=== PATIENT | female | born 1985 | race Caucasian/White ===

== ENCOUNTER 2023-05-06 15:37 | Outpatient (CLI) | payer MEDICAID, SELFPAY ==
[2023-05-06 15:51] LABS: HCG Quant, Pregnancy 2482 mIU/mL (1-3)
== END 2023-05-06 15:38 | disposition home or self-care (01) ==
LOC: LBO 15:40
PROVIDERS: Visit Provider Advanced Practice Midwife
DX: N92.5 Other specified irregular menstruation (principal); Z32.01 Encounter for pregnancy test, result positive
CPT/HCPCS: 36415; 86850; 86900; 86901; 84702

== ENCOUNTER 2023-05-15 16:24 | Outpatient (CLI) | payer MEDICAID, SELFPAY ==
[2023-05-15 16:12] LABS: HCG Quant, Pregnancy 21016 mIU/mL (1-3)
== END 2023-05-15 16:25 | disposition home or self-care (01) ==
LOC: LBO 16:28
PROVIDERS: Visit Provider Advanced Practice Midwife
DX: O20.0 Threatened abortion (principal); Z3A.10 10 weeks gestation of pregnancy
CPT/HCPCS: 36415; 84702

== ENCOUNTER 2023-05-16 00:43 | Outpatient (CLI) | payer MEDICAID, SELFPAY ==
--- OUTSIDE RECORDS SUMMARY | 2023-05-16 00:45 | XMS_ITS | Continuity of Care Document ---
Author Name Unknown Organization [facility] Address [address] [place] [address] Encounter [facility] Date(s): 05/09/23 - 05/09/23 [facility] [address] [place] [address] Encounter Diagnosis Cough(Discharge Diagnosis) - 05/09/23 (Discharge Diagnosis) - 05/09/23 Discharge Disposition: Home or Self Care Attending Physician: Lukas Alvarado MD Admitting Physician: Lukas Alvarado MD Allergies, Adverse Reactions, Alerts No Known Medication Allergies Assessment and Plan Extracted from: Title:Clinical Document Author:Stacie Sandra te:05/09/23 Diagnosis: 1. Cough Comment: Diagnosis: 2. Comment: Diagnosis: Cough Comment: Functional Status 05/09/23 Other exposure to Infectious Disease COV ID-19 Symptoms Present Immunizations Given and Recorded Vaccine Date Status Refusal Reason SARS-CoV-2 (COVID-19) mRNA-1273 vaccine 12/29/20 R ecorded SARS-CoV-2 (COVID-19) mRNA-1273 vaccine 11/28/20 R ecorded Vital Signs Most recent to oldest [Reference Range]: 1 Temperature Temporal Artery [36-38 Deg C ] 36.4 Deg C (05/09/23 6:51 AM) Peripheral Pulse Rate [60-100 bpm] 102 b pm *HI* (05/09/23 6:51 AM) Respiratory Rate [12-24 br/min] 18 br/mi n (05/09/23 6:51 AM) Blood Pressure [90-140/60-90 mmHg] 141/9 8mmHg *HI* (05/09/23 6:51 AM) Weight Dosing 81.65 kg (05/09/23 6:57 AM) Weight Estimated 81.65 kg (05/09/23 6:51 AM) Height/Length Dosing 154.940 cm (05/09/23 6:57 AM) Height/Length Estimated 154.940 cm (05/09/23 6:51 AM) Social History Social History Type Response Tobacco Never tobacco user T obacco Use:. Sex Female Hospital Discharge Instructions Patient Education 05/09/2023 06:51:52 Cough, Adult Cough, Adult Coughing is a reflex that clears your throat and your airways (respiratory system). Coughing helps to heal and protect your lungs. It is normal to cough occasionally, but a cough that happens with other symptoms or lasts a long time may be a sign of a condition that needs treatment. An acute cough may only last 2???3 weeks, while a chronic cough may last 8 or more weeks. Coughing is commonly caused by: ??? Infection of the respiratory systemby viruses or bacteria. ??? Breathing in substances that irritate your lungs. ??? Allergies. ??? Asthma. ??? Mucus that runs down the back of your throat (postnasal drip). ??? Smoking. ??? Acid backing up from the stomach into the esophagus (gastroesophageal reflux). ??? Certain medicines. ??? Chronic lung problems. ??? Other medical conditions such as heart failure or a blood clot in the lung (pulmonary embolism). Follow these instructions at home: Medicines ??? Take qqce-dut-csiepyc and prescription medicines only as told by your health care provider. ??? Talk with your health care provider before you take a cough suppressant medicine. Lifestyle ??? Avoid cigarette smoke. Do not use any products that contain nicotine or tobacco, such as cigarettes, e-cigarettes, and chewing tobacco. If you need help quitting, ask your health care provider. ??? Drink enough fluid to keep your urine pale yellow. ??? Avoid caffeine. ??? Do not drink alcohol if your health care provider tells you not to drink. General instructions ??? Pay close attention to changes in your cough. Tell your health care provider about them. ??? Always cover your mouth when you cough. ??? Avoid things that make you cough, such as perfume, candles, cleaning products, or campfire or tobacco smoke. ??? If the air is dry, use a cool mist vaporizer or humidifier in your bedroom or your home to helploosen secretions. ??? If your cough is worse at night, try to sleep in a semi-upright position. ??? Rest as needed. ??? Keep all follow-up visits as told by your health care provider. This is important. Contact a health care provider if you: ??? Have new symptoms. ??? Cough up pus. ??? Have a cough that does not get better after 2???3 weeks or gets worse. ??? Cannot control your cough with cough suppressant medicines and you are losing sleep. ??? Have pain that gets worse or pain that is not helped with medicine. ??? Have a fever. ??? Have unexplained weight loss. ??? Have night sweats. Get help right away if: ??? You cough up blood. ??? You have difficulty breathing. ??? Your heartbeat is very fast. These symptoms may represent a serious problem that is an emergency. Do not wait to see if the symptoms will go away. Get medical help right away. Call your local emergency services (911 in the [place] Do not drive yourself to the hospital. Summary ??? Coughing is a reflex that clears your throat and your airways. It is normal to cough occasionally, but a cough that happens with other symptoms or lasts a long time may be a sign of a condition that needs treatment. ??? Take gzcm-phz-bpretkt and prescription medicines only as told by your health care provider. ??? Always cover your mouth when you cough. ??? Contact a health care provider if you have new symptoms or a cough that does not get better after 2???3 weeks or gets worse. This information is not intended to replace advice given to you by your health care provider. Make sure you discuss any questions you have with your health care provider. Document Revised: 11/29/2019 Document Reviewed: 11/29/2019 [employer] Patient Education ?? 2021 [employer] Follow Up Care 05/09/2023 06:51:45 With:Follow up with primary care provider Address: When:2 to 4 days Physician Emergency department Note * Vonda Mcarthur MD: PERFORM Event Display: ED Note Physician Authored Date: [id number] ELMER RAY :1985 Age:37 years Sex:Female Visit Date:05/09/2023 Basic Information Time Seen: Vonda Mcarthur MD / 05/09/2023 07:11 Chief Complaint pt states that it is day 4 of coughing, keeping her up at night. ??pt is 7 weeks , contacted her OB yesterday tried meds but nothing is working. pt states that ribs/chest are hurting from coughing so much History Of Present Illness: 37-year-old lady??with history of seasonal allergies, ??who??also tells me she has had chronic??symptoms of??throat itching, throat mucus and cough since she had COVID in 2020,??currently 7 weeks ,??who presents to the emergency department complaining of worsening cough??at night in the past??3 days.??The patient says she has also had bouts of coughing??during the day at work??and she had1 bout yesterday which made her??go home early.?? She says her throat feels??itchy and dry, that she often has to clear it,??and that??it makes her cough. Most of the time it is a dry cough but sometimes there is mucus.?? She feels that??her symptoms are worse when she is laying down and she is trying to sleep??by sitting up slightly.?? She has tried??Zyrtec and??NeilMed rinsing??agents??without improvement in her symptoms.?? She has had no fevers, chills. ??She has had no??midepigastric pain, nausea, vomiting.?? No chest pain or shortness of breath.?? She feels that her chest muscles are sore??because of all the coughing. She took a home covid test which was negative. She does not smoke and never has. Physical Exam Vitals & Measurements T:??36.4?C ??(Temporal Artery)?? HR:??102??(Peripheral)?? RR:??18?? BP:??141/98?? SpO2:??100%?? HT:??154.940??cm?? WT:??81.65??kg??(Estimated)?? Pain Score:??5?? O2 Therapy:??Room air?? General: A&Ox3, Calm, no apparent distress, well developed, pleasant and cooperative ?? HEENT: Head ATNC. Eyes: DOTTIE. Extraocular Mobility: intact and symmetrical. Conjunctiva: non-injected, anicteric, no discharge. Oral Cavity: moist. Neck: no masses, no crepitus. Lymph Nodes: no cervical lymphadenopathy? Respiratory: CTA bilaterally, no wheezing, no rales/crackles? CV: RRR, normal S1, normal S2, no murmurs, rubs or gallops ?? Abdomen : soft, non-tender, non-distended, no rebound or guarding, no hepatosplenomegaly ?? Extremities: no le swelling, warm and well-perfused, no cyanosis, capillary refill <2 seconds? Skin: no rash, no lesions, no bruising? Neuro: normal tone, normal strength in all 4 extremities, sensation intact?? Medical Decision Makin-year-old lady??with history of seasonal allergies, ??who??also tells me she has had chronic??symptoms of??throat itching, throat mucus and cough since she had COVID in 2020,??currently 7 weeks ,??who presents to the emergency department complaining of worsening cough??at night in the past??3 days.? Pt is well and non toxic appearing with reassuring VS and a reassuring lung exam Her presentation is s/f post nasal drip vs reflux causing throat irritation and cough. I do not seeanything indicating infectious such as pna, bronchitis, or cardiac such as ACS or??PE. ?? This pt required extensive counseling. We had an extended conversation for at least 15 minutes as pt expressed severe psychological distress 2/2 symptoms. I did not observe any coughing during that time so I could not assess her cough butaccording to her description the two etiologies above are the most likely. I reviewed home remedies.??I recommended small meals and avoiding eating just before going to sleep. I recommended a trial of Pepto Bismol to see if this would help with possible reflux symptoms. ??We also reviewed air quality at home and at work, as the patient also noted herself that she had not been coughing at all while with us in the ED. Due to pt's continued psychological distress I offered a strep test, a mono test, and a CXR (having explained possible negative effect on the fetus) and the patient ultimately declined. I recommended that she monitors her symptoms and f/u with pcp if no improvement in a?? few days. We reviewed return precautions and I answered all her questions. Procedure No Qualifying Data Assessment/Plan 1.??Cough??R05.9 Ordered: Discharge Patient, 05/09/23 7:51:00 EDT, Constant Indicator ?? 2.?Z34.90 Ordered: Discharge Patient, 05/09/23 7:51:00 EDT, Constant Indicator ?? Patient Education Cough, Adult Follow Up With When Contact Information Follow up with primary care provider Within 2 to 4 days Additional Instructions: Problem List/Past Medical History Ongoing No qualifying data Historical No qualifying data Allergies No Known Medication Allergies Social History Electronic Cigarette/Vaping Electronic Cigarette Use: Never. Tobacco Never tobacco user Tobacco Use:. Electronically Signed on 05/09/23 09:34 AM Vonda Mcarthur MD Emergency department Discharge instructions * Vonda Mcarthur MD: PERFORM Event Display: ED Discharge Information Authored Date: [id number] ELMER RAY :1985 Age:37 years Sex:Female Visit Date:05/09/2023 Discharge Instructions We would like to thank you for allowing us to assist you with your healthcare needs. The following includes patient education materials and information regarding your injury/illness. Diagnosis from Today's Visit Cough Discharge Vitals Temperature??(Temporal Artery) 97.5 ??F (36.4 ??C) Heart Rate??(Peripheral) 102 Respiratory Rate?? 18 Blood Pressure?? 141/98?? Height?? 61.00 in (154.940 cm) Weight??(Estimated) 180.04 lb (81.65 kg) Allergies No Known Medication Allergies What to Do Next Instructions from Your Care Team As we discussed,??the 2 most likely causes of your cough are??postnasal drip??and reflux.?? For postnasal drip,??please??continue your allergy medications and use NeilMed??rinsing solutions??and rinse??your nose??twice a day.?? For reflux, please??take small meals frequently and avoid heavy meals??b efore going to bed.?? You can take Pepto-Bismol??before and after eating??to see if this will help your symptoms.?? To help you sleep,??try??chamomile??or other herbal tea??about half an hour before going to bed.?? If your symptoms do not improve in the next week, please follow-up with your primarycare provider or your hospital manager??for reevaluation. You Need to Schedule the Following Appointments Follow Up with??Follow up with primary care provider When:??Within 2 to 4 days You were treated today on an emergency basis; it may be nelson to contact your primary care provider to notify them of your visit today. You may have been referred to your regular doctor or a specialist, please follow up as instructed. If your condition worsens or you can't get in to see the doctor, contact the Emergency Department. Education Materials Cough, Adult Coughing is a reflex that clears your throat and your airways (respiratory system). Coughing helps to heal and protect your lungs. It is normal to cough occasionally, but a cough that happens with other symptoms or lasts a long time may be a sign of a condition that needs treatment. An acute cough may only last 2???3 weeks, while a chronic cough may last 8 or more weeks. Coughing is commonly caused by: ? Infection of the respiratory systemby viruses or bacteria. ? Breathing in substances that irritate your lungs. ? Allergies. ? Asthma. ? Mucus that runs down the back of your throat (postnasal drip). ? Smoking. ? Acid backing up from the stomach into the esophagus (gastroesophageal reflux). ? Certain medicines. ? Chronic lung problems. ? Other medical conditions such as heart failure or a blood clot in the lung (pulmonary embolism). Follow these instructions at home: Medicines ? Take lwes-aou-qfnktkk and prescription medicines only as told by your health care provider. ? Talk with your health care provider before you take a cough suppressant medicine. Lifestyle ? Avoid cigarette smoke. Do not use any products that contain nicotine or tobacco, such as cigarettes, e-cigarettes, and chewing tobacco. If you need help quitting, ask your health care provider. ? Drink enough fluid to keep your urine pale yellow. ? Avoid caffeine. ? Do not drink alcohol if your health care provider tells you not to drink. General instructions ? Pay close attention to changes in your cough. Tell your health care provider about them. ? Always cover your mouth when you cough. ? Avoid things that make you cough, such as perfume, candles, cleaning products, or campfire or tobacco smoke. ? If the air is dry, use a cool mist vaporizer or humidifier in your bedroom or your home to help loosen secretions. ? If your cough is worse at night, try to sleep in a semi-upright position. ? Rest as needed. ? Keep all follow-up visits as told by your health care provider. This is important. Contact a health care provider if you: ? Have new symptoms. ? Cough up pus. ? Have a cough that does not get better after 2???3 weeks or gets worse. ? Cannot control your cough with cough suppressant medicines and you are losing sleep. ? Have pain that gets worse or pain that is not helped with medicine. ? Have a fever. ? Have unexplained weight loss. ? Have night sweats. Get help right away if: ? You cough up blood. ? You have difficulty breathing. ? Your heartbeat is very fast. These symptoms may represent a serious problem that is an emergency. Do not wait to see if the symptoms will go away. Get medical help right away. Call your local emergency services (911 in the [place] Do not drive yourself to the hospital. Summary ? Coughing is a reflex that clears your throat and your airways. It is normal to cough occasionally, but a cough that happens with other symptoms or lasts a long time may be a sign of a condition that needs treatment. ? Take mjgl-hzt-isidqcn and prescription medicines only as told by your health care provider. ? Always cover your mouth when you cough. ? Contact a health care provider if you have new symptoms or a cough that does not get better after 2???3 weeks or gets worse. This information is not intended to replace advice given to you by your health care provider. Make sure you discuss any questions you have with your health care provider. Document Revised: 11/29/2019 Document Reviewed: 11/29/2019 [employer] Patient Education ?? 2021 [employer] Patient/Grocery Checker Signature Patient Name:ELMER RAY García I have received this information and my questions have been answered. Patient/Grocery Checker Name: Patient/Grocery Checker Signature: Relationship to Patient: Witness Name/Signature: Date: Electronically Signed on: 05/09/2023 07:54 EDTSigned by:B Discharge summary * Stacie Sandra: PERFORM Event Display: Discharge Note Authored Date: * Stacie Sandra: PERFORM Event Display: Discharge Note Authored Date: Diagnosis: 1. Cough Comment: Diagnosis: 2. Comment: Diagnosis: Cough Comment: Electronically Signed on 05/09/23 08:06 AM Stacie Sandra Patient Care team information Care Team Personnel Name: Vonda Mcarthur MD Position: Physician Member Role: ED Physician Address: Address: [address] [place] [id number] [place] Name: Jaquelin Estrella Position: Nurse Member Role: ED Nurse Care Team Related Persons Name: ASHLEY
--- NOTE | 2023-05-16 08:00 | DI.US_ITS ---
Exam(s) US OB 1ST TRIMESTER EXAM: US OB 1ST TRIMESTER CLINICAL HISTORY: confirm viability, THREATENED , O20.0. COMPARISON: No exams were available for comparison TECHNIQUE: Transabdominal Transvaginal first trimester obstetrical ultrasound performed. FINDINGS: Sonographic images demonstrate a single intrauterine gestation. A yolk sac and pole are seen. Sonographically assessed gestational age based upon gestational sac size of 1.7 cm is: 6 weeks Estimated date of delivery based on this ultrasound is: 01/09/2024 heart rate motion is Dopplered at: 116 bpm. No free fluid identified. Both ovaries appear sonographically normal. There is a corpus luteal cyst on the left ovary. Pelvic Measurments Uterus: 9.5 x 4.7 x 5.1 cm Rt Ovary: 3.1 x 2.0 x 2.3 cm Lt Ovary: 3.5 x 2.1 x 2.8 cm IMPRESSION: There is a single intrauterine gestation. heart rate is 116 beats per minute. Yolk sac was id entified as was a pole. Estimated gestational age is 6 weeks based on gestational sac size. A repeat examination in 1-2 weeks should be considered for better characterization of the pole a nd gestational age. DATA REPOSITORY:
== END 2023-05-16 01:03 ==
PROVIDERS: Visit Provider Advanced Practice Midwife
DX: O20.0 Threatened abortion (principal)
CPT/HCPCS: 76801

== ENCOUNTER 2023-05-23 00:14 | Outpatient (CLI) | payer MEDICAID, SELFPAY ==
--- NOTE | 2023-05-23 07:15 | DI.US_ITS ---
Exam(s) US OB 1ST TRIMESTER EXAM: US OB 1ST TRIMESTER CLINICAL HISTORY: threatened miscarriage,o20.0. COMPARISON: US US OB 1ST TRIMESTER from 05/16/2023 TECHNIQUE: Transvaginal first trimester obstetrical ultrasound performed. FINDINGS: Sonographic images demonstrate a single intrauterine gestation. A yolk sac and pole are seen. Sonographically assessed gestational age based upon crown-rump length of 0.8 cm is: 6 +5 weeks Estimated date of delivery based on this ultrasound is: 12 January 2023 Estimated date of delivery based upon prior exam: 09 January 2023 heart rate motion is Dopplered at: 145 bpm. No free fluid identified. Both ovaries appear sonographically normal. Pelvic Measurments Uterus: 8.5 x 5.3 x 5.5 cm Rt Ovary: 1.8 x 3 x 2.7 cm Lt Ovary: 2.9 x 2.3 x 3 cm IMPRESSION: Single live intrauterine gestation measuring 6 weeks 5 days.. DATA REPOSITORY:
== END 2023-05-23 00:34 ==
LOC: DI 00:14
PROVIDERS: Visit Provider Advanced Practice Midwife
DX: O20.0 Threatened abortion (principal)
CPT/HCPCS: 76801

== ENCOUNTER 2023-06-30 02:51 | Outpatient (CLI) | payer MEDICAID, SELFPAY ==
[2023-06-30 11:02] LABS: Panorama Kit Sent via Fed Ex
[2023-06-30 11:16] LABS: Abs Immature Grans 0.06 10^3/uL (0.0-0.06); Absolute Basophil Count 0.05 10^3/uL (0.0-0.2); Absolute Eosinophil Count 0.02 10^3/uL (0.0-0.7); Absolute Lymphocyte Count 1.97 10^3/uL (1.2-3.4); Absolute Monocyte Count 0.49 10^3/uL (0.1-0.8); Absolute Neutrophil Count 6.92 10^3/uL (1.2-6.7); Basophils % 0.5; Eosinophils % 0.2; HCT 35.4 % (36.0-46.0); HGB 11.1 g/dL (11.2-15.7); Immature Grans % 0.6; Lymphocytes % 20.7; MCH 23.8 pg (27.0-33.0); MCHC 31.4 % (32.0-36.0); MCV 76 fL (80-95); MPV 9.9 fL (8.0-11.0); Monocytes % 5.2; Neutrophils % 72.8; Platelet Count 329 10^3/uL (130-400); RBC 4.66 10^6/uL (3.93-5.22); WBC 9.51 10^3/uL (4.4-10.8)
[2023-07-01 09:35] LABS: Hepatitis B Surface Ag Negative (Negative)
[2023-07-01 10:24] LABS: Hepatitis C Ab w Rflx HCV PCR Negative (Negative)
[2023-07-01 10:27] LABS: HIV-1/2 Ag & Ab Screen Negative (Negative)
[2023-07-01 10:37] LABS: Rubella IgG Ab (UVM) Positive (See Note); Varicella IgG Antibody Positive (See Note)
[2023-07-02 14:51] LABS: Syphilis IgG w/Reflex Nonreactive (Nonreactive)
== END 2023-06-30 02:52 | disposition home or self-care (01) ==
LOC: LBO 02:51
PROVIDERS: Advanced Practice Midwife; Visit Provider Advanced Practice Midwife
DX: Z34.91 Encounter for supervision of normal pregnancy, unspecified, first trimester (principal); Z3A.12 12 weeks gestation of pregnancy
CPT/HCPCS: 36415; 86787; 86803; 86850; 86900; 86901; 87340; 87389; 85025; 86762; 86780

== ENCOUNTER 2023-06-30 12:18 | Outpatient (REF) | payer MEDICAID, SELFPAY ==
[2023-06-30 14:21] LABS: *AMPHETAMINES SCREEN URINE Negative (Negative); *BARBITURATES SCREEN URINE Negative (Negative); *BENZODIAZEPINES SCREEN URINE Negative (Negative); Cannabinoids THC Negative (Negative); Cocaine Screen,Urine Negative (Negative); METHADONE URINE SCREEN Negative (Negative); OPIATES URINE SCREEN Negative (Negative)
[2023-06-30 14:22] LABS: Tricyclic Antidepressants Negative (Negative)
[2023-07-04 12:20] LABS: Buprenorphine Negative ng/mL (Cutoff: 5.0); Norbuprenorphine Negative ng/mL (Cutoff: 2.5)
== END 2023-06-30 12:19 | disposition home or self-care (01) ==
LOC: LBN 12:18
PROVIDERS: Visit Provider Advanced Practice Midwife
DX: Z34.91 Encounter for supervision of normal pregnancy, unspecified, first trimester (principal); Z3A.12 12 weeks gestation of pregnancy
CPT/HCPCS: 80307; 80348; 87086

== ENCOUNTER 2023-07-07 03:50 | Outpatient (CLI) | payer MEDICAID, SELFPAY ==
[2023-07-07 11:26] LABS: Glucose,1 Hr (Glucola) 162 mg/dL (80-140)
== END 2023-07-07 03:51 | disposition home or self-care (01) ==
LOC: LBO 03:50
PROVIDERS: Advanced Practice Midwife; Visit Provider Advanced Practice Midwife
DX: Z34.91 Encounter for supervision of normal pregnancy, unspecified, first trimester (principal); Z3A.13 13 weeks gestation of pregnancy
CPT/HCPCS: 36415; 82950

== ENCOUNTER → 2023-08-28 03:00 | Outpatient (CLI) | payer MEDICAID, SELFPAY ==
--- NOTE | 2023-08-28 09:00 | DI.US_ITS ---
Exam(s) US OB 2-3 TRIMESTER EXAM: US OB 2-3 TRIMESTER CLINICAL HISTORY: anatomy, Z34.90, SURVEY. TECHNIQUE: Transabdominal obstetrical ultrasound was performed. COMPARISON: US US OB 1ST TRIMESTER from 05/23/2023 FINDINGS: There is a single viable intrauterine gestation with cardiac activity identified-161 bpm. Amniotic fluid: There is a normal amount of amniotic fluid. Placental location: The placenta is posterior grade 1,with no evidence of placenta previa.Distance fr om the tip of placenta to the internal cervical os is 4 cm. ANATOMY: A 3 vessel umbilical cord is seen. A four-chamber cardiac view was obtained. Right and left ventricular outflow tracts were imaged. There are no obvious abnormalities of the spinal column evident. There is no obvious abnormal ity of the anterior abdominal wall. stomach and urinary bladder are identified and there is no evidence of hydronephrosis. No abnormalities of the upper lip region are identified. No evidence of choroid plexus cysts i n the brain. Dating parameters place this at approximately 20 weeks and 6 days gestational age. BPD measures 20 weeks and 4 days HC measures 20 weeks and 6 days AC measures 20 weeks and 6 days FL measures 20 weeks and 6 days Estimated weight is 385 gm-0 pounds, 14 ounces Fetus is at the 71st percentile on the Hadlock scale. IMPRESSION:: Single viable intrauterine gestation which is approximately 20 weeks and 6 days gestati onal age, implying an MARICEL of 01/09/2024.. There are no obvious anomalies evident on today's study. The placenta is posterior with no evidence of placenta previa. There is a normal amount of amniotic fluid. DATA REPOSITORY:
== END ==
PROVIDERS: Visit Provider Obstetrics & Gynecology
DX: Z34.92 Encounter for supervision of normal pregnancy, unspecified, second trimester (principal)
CPT/HCPCS: 76805

== ENCOUNTER 2023-08-28 04:59 | Outpatient (CLI) | payer MEDICAID, SELFPAY ==
[2023-08-28 14:03] LABS: Abs Immature Grans 0.08 10^3/uL (0.0-0.06); Absolute Basophil Count 0.03 10^3/uL (0.0-0.2); Absolute Eosinophil Count 0.03 10^3/uL (0.0-0.7); Absolute Neutrophil Count 8.86 10^3/uL (1.2-6.7); Basophils % 0.3; Eosinophils % 0.3; HCT 33.1 % (36.0-46.0); HGB 10.1 g/dL (11.2-15.7); Immature Grans % 0.7; Lymphocytes % 15.9; MCH 23.1 pg (27.0-33.0); MCHC 30.5 % (32.0-36.0); MCV 76 fL (80-95); MPV 9.6 fL (8.0-11.0); Monocytes % 4.4; Neutrophils % 78.4; Platelet Count 277 10^3/uL (130-400); RBC 4.38 10^6/uL (3.93-5.22); RDW 16.4 % (11.7-14.6); RDW-SD 43.6 fL
[2023-08-28 14:49] LABS: ALT 18 U/L (14-59); AST 15 U/L (15-37); Albumin 2.8 g/dL (3.4-5.0); Alkaline Phosphatase 95 U/L (46-116); Anion Gap 9.6 mmol/L (3-11); BUN 8 mg/dL (7-18); Bilirubin, Total 0.5 mg/dL (0.2-1.0); CO2 23.4 mmol/L (21.0-32.0); CREATININE 0.5 mg/dL (0.55-1.02); Calcium 9.2 mg/dL (8.5-10.1); Chloride 99 mmol/L (98-107); Estimated GFR 123.81 (mL/min/1.73m2); Glucose 95 mg/dL (74-106); Potassium 3.8 mmol/L (3.5-5.1); Sodium 132 mmol/L (136-145); Total Protein 7.3 g/dL (6.4-8.2)
[2023-08-28 17:53] LABS: COMMENT (LAB VIEW ONLY) 26.59 mg/dL
[2023-08-28 17:54] LABS: PROTEIN < 6.0 mg/dL
== END 2023-08-28 05:00 | disposition home or self-care (01) ==
LOC: LBO 05:00
PROVIDERS: Visit Provider Obstetrics & Gynecology
DX: O10.919 Unspecified pre-existing hypertension complicating pregnancy, unspecified trimester (principal); Z3A.00 Weeks of gestation of pregnancy not specified
CPT/HCPCS: 36415; 80053; 82565; 84156; 85025

== ENCOUNTER → 2023-11-06 01:13 | Outpatient (CLI) | payer MEDICAID, SELFPAY ==
--- NOTE | 2023-11-06 11:00 | DI.US_ITS ---
Exam(s) US OB CHANCE WEIGHT EXAM: US OB CHANCE WEIGHT CLINICAL HISTORY: size and CHANCE,GESTATIONAL DIABETES,o24.419. TECHNIQUE: Transabdominal obstetrical ultrasound performed. COMPARISON: US US OB 2-3 TRIMESTER from 08/28/2023 FINDINGS:: Number of fetuses: One. position: Vertex. Placental location: Posterior. No evidence of previa. BIOMETRIC DATA: BPD: 78mm = 31+1 weeks HC: 288mm = 31+5 weeks AC: 272mm = 31+2 weeks FL: 59 mm = 30+ 5 weeks EFW: 11/30/2005 Gms = 62% Composite Age: 31+2 weeks MARICEL: 06 January 2024 Heart Rate: 145BPM Amniotic fluid index: 17.7 cm. Amount of fluid is visually within normal limits. IMPRESSION: size and weight are within the expected range. DATA REPOSITORY:
== END ==
PROVIDERS: Visit Provider Obstetrics & Gynecology
DX: O24.414 Gestational diabetes mellitus in pregnancy, insulin controlled (principal); Z3A.31 31 weeks gestation of pregnancy
CPT/HCPCS: 76816

== ENCOUNTER → 2023-12-05 02:26 | Outpatient (CLI) | payer MEDICAID, SELFPAY ==
--- NOTE | 2023-12-05 06:45 | DI.US_ITS ---
Exam(s) US OB CHANCE WEIGHT EXAM: US OB CHANCE WEIGHT CLINICAL HISTORY: follow growth and CHANCE,)24.419,hypertension,gest diabetes. TECHNIQUE: Transabdominal obstetrical ultrasound performed. COMPARISON: US US OB 1ST TRIMESTER from 05/23/2023 US US OB 2-3 TRIMESTER from 08/28/2023 US US OB CHANCE WEIGHT from 11/06/2023 FINDINGS: Number of fetuses: 1 position: CEPHALIC Placental location: There is a grade 1 posterior and fundal placenta. No evidence of previa. BIOMETRIC DATA: BPD: 8.49cm, 34weeks 1day HC: 30.93cm, 34weeks 4days AC: 30.9cm, 34weeks 6days FL: 6.64cm, 34weeks 1day EFW: 2,461.05g, 5lb 7.34oz, 44.9% Composite Age: 34weeks 3days MARICEL: 01/13/2024 Heart Rate: 144bpm Amniotic fluid index: 14.59cm. Visually, amount of fluid is within normal limits. IMPRESSION: 1. Single live intrauterine gestation as above. 2. Estimated weight is 2461gms. This is the 45th percentile. 3. Amniotic fluid index is 14.6 cm. Visually within normal limits. DATA REPOSITORY:
== END ==
PROVIDERS: Visit Provider Obstetrics & Gynecology Gynecology
DX: O24.419 Gestational diabetes mellitus in pregnancy, unspecified control; Z3A.34 34 weeks gestation of pregnancy
CPT/HCPCS: 76816

== ENCOUNTER 2023-12-05 09:19 | Outpatient (CLI) | payer MEDICAID, SELFPAY ==
[2023-12-05 09:49] LABS: HCT 35.8 % (36.0-46.0); HGB 11.2 g/dL (11.2-15.7); MCH 24.7 pg (27.0-33.0); MCHC 31.3 % (32.0-36.0); MCV 79 fL (80-95); MPV 9.8 fL (8.0-11.0); Platelet Count 224 10^3/uL (130-400); RBC 4.54 10^6/uL (3.93-5.22); RDW 16.5 % (11.7-14.6); RDW-SD 46.8 fL; WBC 12.01 10^3/uL (4.4-10.8)
[2023-12-05 09:55] VITALS: BP 126/77; PULSE 96
[2023-12-05 10:08] LABS: ALT 17 U/L (14-59); AST 15 U/L (15-37); Albumin 2.4 g/dL (3.4-5.0); Alkaline Phosphatase 156 U/L (46-116); Anion Gap 9.2 mmol/L (3-11); BUN 7 mg/dL (7-18); Bilirubin, Total 0.5 mg/dL (0.2-1.0); CO2 23.8 mmol/L (21.0-32.0); CREATININE 0.5 mg/dL (0.55-1.02); Calcium 8.7 mg/dL (8.5-10.1); Chloride 104 mmol/L (98-107); Estimated GFR 123.81 (mL/min/1.73m2); Glucose 100 mg/dL (74-106); Potassium 4.3 mmol/L (3.5-5.1); Sodium 137 mmol/L (136-145); Total Protein 6.5 g/dL (6.4-8.2); Uric Acid 3.1 mg/dL (2.6-6.0)
--- NOTE | 2023-12-05 10:08 | W.OBNST ---
Date of service: 12/05/23 Time of Service: 10:08 NST Evaluation Reason for NST Reasons for Nonstress Test: CHRONIC HYPERTENSION Gestational Age Gestational Age in Weeks and Days: 34 Weeks and 4Days Test and Monitor Explained Test/Monitor Explained: Test Explained, Monitor Explained and Patient Verbalized Understanding Vital Signs Blood Pressure: 126/77 Pulse: 96 Urine Results Urine Protein: Negative Urine Ketones: Negative Urine Glucose: Negative Urine Blood: Negative NST Information Date on Monitor: 12/05/23 Time on Monitor: 09:25 Date off Monitor: 12/05/23 Time off Monitor: 09:55 Total Time on Monitor: 30 NST Interventions: None NST Evaluation Patient States Movement: Present FHR Baseline: 135 Variability: Moderate 6-25 bpm Accelerations: 15x15 Decelerations: None NST Results: Reactive Note Ultrasound Done: N/A. NST Note Note: Pt was evaluated on BC after BP 130/90 during [facility] visit. Nf CBC, urine P/C ratio to low to measure. CMP results pending. No c/o headache or abdominal pain. Pt given reassurance and told to return to [facility] on 12/08/23 for repeat BP check. NST Reviewed and Verified by: Marva Alanis
[2023-12-05 10:13] VITALS: BP 126/77; PULSE 96
[2023-12-05 10:35] LABS: COMMENT (LAB VIEW ONLY) 76.49 mg/dL
[2023-12-05 10:40] LABS: PROTEIN 12.2 mg/dL; Prot/Crea Ur Ratio 0.15
== END 2023-12-05 10:00 | disposition home or self-care (01) ==
LOC: BCD 09:22 → OBS 09:28
PROVIDERS: Visit Provider Obstetrics & Gynecology Gynecology
DX: O10.13 Pre-existing hypertensive heart disease complicating the puerperium (principal); Z3A.34 34 weeks gestation of pregnancy
CPT/HCPCS: 36415; 80053; 85027; 59025; 82565; 84156; 84550

== ENCOUNTER 2023-12-08 14:27 | Outpatient (CLI) | payer MEDICAID, SELFPAY ==
[2023-12-08 14:32] VITALS: TEMP 36.8
--- NOTE | 2023-12-09 10:08 | W.OBNST ---
Date of service: 12/09/23 Time of Service: 10:08 NST Evaluation Reason for NST Reasons for Nonstress Test: CHRONIC HYPERTENSION Gestational Age Gestational Age in Weeks and Days: 35 Weeks and 0Days Test and Monitor Explained Test/Monitor Explained: Test Explained, Monitor Explained and Patient Verbalized Understanding Vital Signs Temperature: 98.2 F Urine Results Urine Protein: Negative NST Information Date on Monitor: 12/08/23 Time on Monitor: 14:15 Date off Monitor: 12/08/23 Time off Monitor: 15:50 Total Time on Monitor: 95 NST Interventions: PO Hydration, Reposition Patient, Notify Provider and Other NST Evaluation Patient States Movement: Present FHR Baseline: 160 Variability: Moderate 6-25 bpm Accelerations: 10x10 and Prolonged Decelerations: None NST Results: Non-Reactive Note Ultrasound Done: Biophysical Profile Amniotic Fluid: 2 (15.4) Muscle Tone: 2 Body Movements: 2 Breathing Movements: 2 NST Results: Non-Reactive Total Biophysical Profile Score: 8 Coding for Biophysical Profile w/NST: Completed Exam. NST Note Note: Pt presented to initiate NSTs for chronic HTN and insulin requiring GDM. Pt's NST not reaching reactive status. BPP performed. */10. CHANCE 15.4. Gross and fine movements noted. breathing present. Pt will return to repeat NST later this week. GBS RV Cx next week. Pt reports excellent glycemic control. DBP in office today 90. Labetalol 100mg BID initiated. rC/S date scheduled: 01/07/24. NST Reviewed and Verified by: Marva Alanis
[2023-12-09 10:13] VITALS: TEMP 36.8
== END 2023-12-08 16:20 | disposition home or self-care (01) ==
LOC: BCD 14:27 → OBS 14:28
PROVIDERS: Visit Provider Obstetrics & Gynecology Gynecology
DX: I10 Essential (primary) hypertension (principal)
CPT/HCPCS: 59025

== ENCOUNTER 2023-12-11 11:50 | Outpatient (CLI) | payer MEDICAID, SELFPAY ==
[2023-12-11 14:12] VITALS: BP 126/85; PULSE 96; TEMP 37.2
[2023-12-11 14:24] VITALS: BP 126/85; PULSE 96
--- NOTE | 2023-12-11 17:28 | W.OBNST ---
Date of service: 12/11/23 Time of Service: 17:28 NST Evaluation Reason for NST Reasons for Nonstress Test: GDM-INSULIN and GESTATIONAL HYPERTENSION Gestational Age Gestational Age in Weeks and Days: 35 Weeks and 3Days Test and Monitor Explained Test/Monitor Explained: Test Explained Vital Signs Blood Pressure: 126/85 Pulse: 96 Temperature: 99.0 F NST Information Date on Monitor: 12/11/23 Time on Monitor: 14:04 Date off Monitor: 12/11/23 Time off Monitor: 14:40 Total Time on Monitor: 36 NST Interventions: None NST Evaluation Patient States Movement: Present FHR Baseline: 150 Variability: Moderate 6-25 bpm Accelerations: 15x15 Decelerations: None NST Results: Reactive Note Ultrasound Done: N/A. NST Note Note: reactive NST. BP stable. Glycemic control good. Pt will f/u for twice weekly NSTs and have GBS RV Cx at the time of the next visit. NST Reviewed and Verified by: Marva Alanis
[2023-12-11 17:30] VITALS: BP 126/85; PULSE 96; TEMP 37.2
== END 2023-12-11 14:46 ==
LOC: BCD 11:51 → OBS 14:10
PROVIDERS: Visit Provider Obstetrics & Gynecology Gynecology
DX: O10.013 Pre-existing essential hypertension complicating pregnancy, third trimester (principal); Z3A.35 35 weeks gestation of pregnancy
CPT/HCPCS: 59025

== ENCOUNTER 2023-12-12 10:21 | Outpatient (CLI) | payer MEDICAID, SELFPAY ==
[2023-12-12 11:29] VITALS: BP 112/63; PULSE 88; TEMP 36.8
--- NOTE | 2023-12-12 17:06 | W.OBNST ---
Date of service: 12/12/23 Time of Service: 14:00 NST Evaluation Reason for NST Reasons for Nonstress Test: GESTATIONAL HYPERTENSION Gestational Age Gestational Age in Weeks and Days: 35 Weeks and 4Days Test and Monitor Explained Test/Monitor Explained: Test Explained, Monitor Explained and Patient Verbalized Understanding Vital Signs Blood Pressure: 112/63 Pulse: 88 Temperature: 98.2 F Urine Results Urine Protein: Negative Urine Ketones: Negative Urine Glucose: Negative Urine Blood: Negative NST Information Date on Monitor: 12/12/23 Time on Monitor: 11:20 Date off Monitor: 12/12/23 Time off Monitor: 12:30 Total Time on Monitor: 70 NST Interventions: PO Hydration and Meal Given NST Evaluation Patient States Movement: Present FHR Baseline: 140 Variability: Moderate 6-25 bpm Accelerations: 15x15 Decelerations: None NST Results: Reactive Note Ultrasound Done: N/A. NST Note Note: Pt is feeling better after eating. She was not feeling well at work and someone checked her BP and said it was elevated. Then she checked a urine protein dip and said that was elevated too. It was tr-1+ on dip here. Her BPs were totally normal here. She just started Labetalol last night because she hadn't been able to pick it up prior to that. She says her finger sticks have been normal. Her fasting was 70 this am and she didn't eat breakfast until after she was at work. She doesn't always eat breakfast as she's not always hungry. I emphasized the importance of eating breakfast and not skipping meals as a gestational diabetic. NST Reviewed and Verified by: Ally Carter
[2023-12-12 17:09] VITALS: BP 112/63; PULSE 88; TEMP 36.8
== END 2023-12-12 14:00 | disposition home or self-care (01) ==
LOC: BCD 10:22 → OBS 10:47
PROVIDERS: Visit Provider Obstetrics & Gynecology
DX: O13.3 Gestational [pregnancy-induced] hypertension without significant proteinuria, third trimester (principal); Z3A.35 35 weeks gestation of pregnancy
CPT/HCPCS: 59025

== ENCOUNTER 2023-12-16 12:02 | Outpatient (CLI) | payer MEDICAID, SELFPAY ==
[2023-12-16 14:14] VITALS: BP 125/90; PULSE 90; TEMP 37
[2023-12-16 14:46] VITALS: BP 125/90; PULSE 90
--- NOTE | 2023-12-31 13:02 | W.OBNST ---
Date of service: 12/16/23 Time of Service: 14:00 NST Evaluation Reason for NST Reasons for Nonstress Test: GDM-INSULIN, GESTATIONAL HYPERTENSION and ADVANCED MATERNAL AGE Gestational Age Gestational Age in Weeks and Days: 37 Weeks and 2Days Test and Monitor Explained Test/Monitor Explained: Test Explained Vital Signs Blood Pressure: 125/90 Pulse: 90 Temperature: 98.6 F NST Information Date on Monitor: 12/16/23 Time on Monitor: 14:15 NST Interventions: None NST Evaluation Patient States Movement: Present FHR Baseline: 130 Variability: Moderate 6-25 bpm Accelerations: 15x15 Decelerations: None NST Results: Reactive Note Ultrasound Done: N/A. NST Note NST Reviewed and Verified by: Ally Carter
[2023-12-31 13:03] VITALS: BP 125/90; PULSE 90; TEMP 37
== END 2023-12-16 15:30 ==
LOC: BCD 12:02 → OBS 14:11
PROVIDERS: Visit Provider Obstetrics & Gynecology Gynecology
DX: O24.414 Gestational diabetes mellitus in pregnancy, insulin controlled (principal); Z3A.37 37 weeks gestation of pregnancy
CPT/HCPCS: 59025

== ENCOUNTER 2023-12-24 08:46 | Outpatient (CLI) | payer MEDICAID, SELFPAY ==
[2023-12-24 08:51] VITALS: BP 126/88; PULSE 102
--- NOTE | 2023-12-24 15:52 | W.OBNST ---
Date of service: 12/24/23 Time of Service: 09:00 NST Evaluation Reason for NST Reasons for Nonstress Test: GDM-INSULIN Gestational Age Gestational Age in Weeks and Days: 37 Weeks and 2Days Test and Monitor Explained Test/Monitor Explained: Test Explained, Monitor Explained and Patient Verbalized Understanding NST Information Date on Monitor: 12/24/23 Time on Monitor: 08:40 Date off Monitor: 12/24/23 Time off Monitor: 09:00 Total Time on Monitor: 20 NST Interventions: None NST Evaluation Patient States Movement: Present FHR Baseline: 135 Variability: Moderate 6-25 bpm Accelerations: 15x15 Decelerations: None NST Results: Reactive Note Ultrasound Done: N/A. NST Note NST Reviewed and Verified by: Ally Carter
== END 2023-12-24 09:09 | disposition home or self-care (01) ==
LOC: BCD 08:47 → OBS 08:49
PROVIDERS: Visit Provider Obstetrics & Gynecology
DX: O24.414 Gestational diabetes mellitus in pregnancy, insulin controlled (principal); Z3A.37 37 weeks gestation of pregnancy
CPT/HCPCS: 59025

== ENCOUNTER 2023-12-24 09:32 | Outpatient (REF) | payer MEDICAID, SELFPAY ==
[2023-12-24 11:26] LABS: COMMENT (LAB VIEW ONLY) 151.01 mg/dL; PROTEIN 20.7 mg/dL; Prot/Crea Ur Ratio 0.13
== END 2023-12-24 09:33 | disposition home or self-care (01) ==
LOC: LBN 09:32
PROVIDERS: Visit Provider Obstetrics & Gynecology
DX: O13.3 Gestational [pregnancy-induced] hypertension without significant proteinuria, third trimester (principal); Z3A.37 37 weeks gestation of pregnancy
CPT/HCPCS: 82565; 84156

== ENCOUNTER 2024-01-06 03:33 | Outpatient (CLI) | payer MEDICAID, SELFPAY ==
[2024-01-06 10:12] LABS: HCT 37.8 % (36.0-46.0); HGB 11.9 g/dL (11.2-15.7); MCH 24.4 pg (27.0-33.0); MCHC 31.5 % (32.0-36.0); MCV 78 fL (80-95); MPV 10.7 fL (8.0-11.0); Platelet Count 202 10^3/uL (130-400); RBC 4.87 10^6/uL (3.93-5.22); RDW 16.4 % (11.7-14.6); RDW-SD 45.1 fL; WBC 13.31 10^3/uL (4.4-10.8)
[2024-01-06 11:44] LABS: ALT 23 U/L (14-59); AST 18 U/L (15-37); Albumin 2.5 g/dL (3.4-5.0); Alkaline Phosphatase 240 U/L (46-116); BUN 8 mg/dL (7-18); Bilirubin, Total 0.5 mg/dL (0.2-1.0); CREATININE 0.6 mg/dL (0.55-1.02); Calcium 9.1 mg/dL (8.5-10.1); Chloride 104 mmol/L (98-107); Estimated GFR 118.49 (mL/min/1.73m2); Glucose 93 mg/dL (74-106); Potassium 4.1 mmol/L (3.5-5.1); Sodium 138 mmol/L (136-145)
== END 2024-01-06 03:34 | disposition home or self-care (01) ==
LOC: LBO 03:33
PROVIDERS: Obstetrics & Gynecology; Visit Provider Obstetrics & Gynecology Gynecology
DX: Z01.818 Encounter for other preprocedural examination
CPT/HCPCS: 36415; 80053; 85027; 86850; 86900; 86901

== ENCOUNTER 2024-01-07 09:06 | Inpatient (IN) | payer MEDICAID, SELFPAY ==
[2024-01-07] VITALS (48 sets, daily range): BP systolic 80–124; BP diastolic 50–81; PULSE 76–101; RESP 16–26; TEMP 36.3–36.8; O2SAT 92–100; BMI 37.8
[2024-01-07] MEDS: Lactated Ringers 1,000 ML 125 ML IV ×2 (06:10→09:13)
[2024-01-07] MEDS: AZITHROMYCIN 500 MG in Normal Saline 250 ML 250 MG IVPB (06:22)
--- NOTE | 2024-01-07 06:35 | HPE_ITS ---
Date of service: 01/06/24 Time of Service: 06:36 Assessment and Plan Assessment and plan (1) Chronic hypertension affecting : Status: Acute (2) GDM (gestational diabetes mellitus): Status: Acute (3) History of delivery: Status: Chronic (4) Declines vaginal after trial: Status: Acute (5) Request for sterilization: Status: Acute (6) Preop examination: Status: Acute Assessment and plan: Preop counseling: She was informed of the risks of procedure including risk of damage to bowel, bladder, and blood vessels during the time of the delivery. If any of those injuries were to occur she may require a repair at the time of surgery or blood transfusion or possible hysterectomy. I reviewed the risk of infection and the administration of IV Abx prior to the surgery. By virtue of having a bilateral salpingectomy at the time of the LTCS she will be unable to become in the future. She has no desire for future pregnancies, even if her life circumstances were to change. Informed consent was obtained. OB-HPI Labor/Delivery History of Present Illness Reason for Visit: C-Sect Chief Complaint: Scheduled Section , Inidcation for Scheduled C- Section: Previous .. MARICEL Calculator Estimated Delivery Date Method Current WG Current Estimate 01/12/24 Ultrasound #1 39w 2d Other Estimates 12/06/23 LMP (Certain) 44w 4d History of Present Expected Delivery Route/Plan Plans repeat C/S - FOB/boyfriend - Zacarias Sumner (first child) BG Specific Issues/Plan 1. Prior CS: Desires repeat C/S and tubal ligation - Federal consent signed 2. BMI 35 - Early glucola 162, 3 hr declined, 3. AMA: pt opts for cfDNA=low risk female, declines level 2 and MFM @ [facility] - Start low dose ASA @ 12 wks 4. Depression/anxiety, takes celexa 30 mg daily - increase to 40mg 12/24/23 5. GDM - Nutrition consult 08/25 - All fastings elevated -09/09/23. Increased Novolin-N 4 units AM & 4units PM. 11/06/23: Novolin-N; 8units BID. - NSTs begin 2x/week at 34w. deliver by 39wks 01/07/24 6. CHTN: diastolic elevated mildly x3 now - 12/05/23. Nl labs. 12/08/23. Labetalol 100mg BID. - Already on ASA and will need early monitoring and delivery due to GDM - Will need labs with next visit. Assessment: History Updated Narrative: Pt is a 38yo multiparous female with insulin requiring GDM and chronic hypertension who decines [place] and requests elective repeat delivery with tubal sterilization at term. Informed Consent Informed Consent: Section Delivery Review of Systems All systems reviewed & are unremarkable except as noted in HPI and below Constitutional Constitutional: Reports body ache(s), Reports difficulty sleeping and Reports fatigue Cardiovascular Cardiovascular: Reports system reviewed and no additional complaints, except as documented Respiratory Respiratory: Reports system reviewed and no additional complaints, except as documented Gastrointestinal Gastrointestinal: Denies change in bowel habits, Denies change in stool character, Reports heartburn and Denies nausea Genitourinary Genitourinary: Denies abnormal vaginal bleeding, Reports vaginal discharge, Denies vaginal odor and Denies vaginal pruritus Comments: nocturia. Musculoskeletal Musculoskeletal: Reports back pain, Reports myalgias and Reports arthralgias Integumentary/Breasts Skin/Breast: Reports system reviewed and no additional complaints, except as documented Neurologic Neurologic: Reports system reviewed and no additional complaints, except as documented Psychiatric Psychiatric: Reports abnormal sleep pattern and Reports anxiety Endocrine Endocrine: Reports fatigue PFSH All Active Problems (Updated 01/07/24 @ 06:50 by Marva Alanis MD) Preop examination (Acute) Request for sterilization (Acute) Declines vaginal after trial (Acute) Chronic hypertension affecting (Acute) GDM (gestational diabetes mellitus) (Acute) Anxiety and depression (Chronic) Elderly multigravida (Acute) Obesity (BMI 35.0-39.9 without comorbidity) (Acute) History of delivery (Chronic) (Acute) Social History (Updated 12/08/23 @ 14:45 by Marva Alanis MD) Smoking/Tobacco Use Status: Never Smoking risk assessment performed?: Yes Alcohol Intake: never Drug use: Never Substance use type: does not use Household members: significant other, family and other Details: 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 BF Zacarias. Housing: house Number of Children: 1 Do you feel safe at home: Yes Do you feel safe in your relationship?: Yes History History 4 Para 1 Hx # Term Pregnancies 1 Multiple births 0 Hx # Pregnancies 0 Ectopic pregnancies 0 AB induced 0 Hx Number of Living Children 1 AB spontaneous 2 Past Pregnancies Del. Date GA/Weeks # Preg Succ Route Wgt Sex Labor Lgth Anesth esia Location Prov Complic 12/22/07 42 No Yes 7 lb 13 oz Female 10 hrs [facility] in [facility] Delivery Date: 12/22/07 Last Updated by: Flower Pena IOL for postdates, no epidural, C/S @ 4 cm, distress. CHIC.TVs Allergies and Home Medications Allergies Allergy/AdvReac Type Severity Reaction Status Date / Time seasonal Allergy Mild Other (See Uncoded 01/06/24 09:28 Comment) Home Medications Medication Instructions Recorded Confirmed Type aspirin 81 mg tablet,delayed 81 mg PO DAILY #60 tabs 06/30/23 01/07/24 Rx release pediatric multivitamin no.76 2 tab PO DAILY 06/30/23 01/07/24 History (Flintstones Complete chewable tablet) blood sugar diagnostic (FreeStyle #100 ea 07/07/23 01/07/24 Rx Lite Strips) blood-glucose meter (FreeStyle #1 ea 07/07/23 01/07/24 Rx [place] Lite kit) lancets 26 gauge (Advocate Lancet) #100 ea 07/07/23 01/07/24 Rx pen needle, diabetic 29 gauge x #100 ea 08/28/23 01/07/24 Rx 1/2 (BD Ultra-Fine Original Pen Needle) insulin NPH isoph U-100 human 100 8 unit (0.08 mL) subcut BID #15 mL 11/06/23 01/07/24 Rx unit/mL (3 mL) subcutaneous pen (Humulin N NPH U-100 Insulin KwikPen) citalopram 20 mg tablet (Celexa) 40 mg PO DAILY 12/24/23 01/07/24 History labetalol 100 mg tablet 200 mg (2 x 100 mg) PO BID #60 tabs 12/24/23 01/07/24 Rx Exam Physical Exam Vital Signs Reviewed: Yes Narrative: Pt reports fasing and postprandial CBGs have been in range. Constitutional Constitutional: no acute distress Detailed Labor and Delivery Exam Position: Other (VE deferred.) Roach Score: Cervical Points Exam 0 1 2 3 Dilation Closed 1-2cm 3-4 cm 5-6cm Effacement 0-30% 40-50% 60-70% 80% Consistency Firm Medium Soft Station -3 -2 -1,0 +1,+2 Position Posterior Mid Anterior Amniotic Membrane Status: Intact Fetus A Heart Rate Baseline: 150 Est. Weight: 7 lb Neck Exam Neck Exam: Normal Breast Exam Breast Exam: Not Done Respiratory Exam Respiratory Exam: Normal (lungs clear to auscultation. rate regular.) Cardiovascular Exam Cardiovascular Exam: Normal Detail Cardiovascular Exam Cardiovascular: Present RRR Abdominal Exam Abdominal Exam: Normal (gravid. Non-tender) Detailed Abdominal Exam Abdominal: Present soft Rectal Exam Rectal Exam: Not Done Exam Exam: Not Done Extremities Exam Extremities Exam: Normal Back/Spine/Pelvis Exam Back Exam: Not Done Skin Exam Skin Exam: Normal Neurological Exam Neurological Exam: Normal Psychiatric Exam Psychiatric Exam: Normal Results Results Group Beta Strep: Not Done Blood Type: A+ Rubella Status: Immune Varicella Immunity: Immune Risk Assessment Risk for Shoulder Dystocia Historical/Initial OB: POSITIVE FOR: Pre- BMI>30; NEGATIVE FOR: Pelvic Abnormality, Previous Shoulder Dystocia or Previous Macrosomia 36 Weeks: POSITIVE FOR: Current Gestational DM Risk for Pre-Eclampsia Date Initiated/Initials: start @ 12 wks. JK Yes, if one or more: NEGATIVE FOR: Hx Pre-E/Gest HTN, Chronic HTN, Multiple Gestation, Pre-gestational DM, Renal Disease, Systemic Lupus or APA Syndrome Yes, if 2 or more: POSITIVE FOR: Age>= 35 yrs, >10yr btwn pregnancies and BMI>30; NEGATIVE FOR: Nulliparity, ethinicty, Mother/Sister w/ Pre-E or Previous IUGR Risk for Post- Hemorrhage Initial: NEGATIVE FOR: Multiple Gestation, Previous PPH, Known Clotting Deficiency, Grand Multiparity or Anticoagulation Risks Reviewed Risks Reviewed Upon Admission: Yes
--- NOTE | 2024-01-07 07:36 | ANES.PREOP_ITS ---
General Info Date of Service Date Performed: 01/07/24 Height: 5 ft 1 in Weight: 90.718 kg Body Mass Index (BMI): 37.8 Surgical Procedure: Operation Date: 01/07/24 07:40 Proposed Procedure Side Surgeon p Repeat Low Transverse Section Marva Alanis MD Meds Allergies and Home Medications Allergies Allergy/AdvReac Type Severity Reaction Status Date / Time seasonal Allergy Mild Other (See Uncoded 01/06/24 09:28 Comment) Home Medication Medication Instructions Recorded aspirin 81 mg tablet,delayed 81 mg PO DAILY #60 tabs 06/30/23 release pediatric multivitamin no.76 2 tab PO DAILY 06/30/23 (Flintstones Complete chewable tablet) blood sugar diagnostic (FreeStyle #100 ea 07/07/23 Lite Strips) blood-glucose meter (FreeStyle #1 ea 07/07/23 [place] Lite kit) lancets 26 gauge (Advocate Lancet) #100 ea 07/07/23 pen needle, diabetic 29 gauge x #100 ea 08/28/23 1/2 (BD Ultra-Fine Original Pen Needle) insulin NPH isoph U-100 human 100 8 unit (0.08 mL) subcut BID #15 mL 11/06/23 unit/mL (3 mL) subcutaneous pen (Humulin N NPH U-100 Insulin KwikPen) citalopram 20 mg tablet (Celexa) 40 mg PO DAILY 12/24/23 labetalol 100 mg tablet 200 mg (2 x 100 mg) PO BID #60 tabs 12/24/23 Current Visit Medications: Current Medications Generic Name Dose Route Start Last Admin Trade Name Marekq PRN Reason Stop Dose Admin Bacteriostatic Water 0 ml 01/07/24 06:15 Water,Injection,Bacteriostatic 30 Ml Vial IJ DIRECTED PRN Azithromycin 500 mg/ Sodium 250 mls @ 250 mls/hr 01/07/24 06:30 01/07/24 06:22 Chloride IVPB 250 mls/hr PREOP WENDY Administration Cefazolin Sodium/Dextrose 2 gm in 50 mls @ 100 mls/hr 01/07/24 06:30 Ancef Duplex IVPB PREOP WENDY Ringer's Solution 1,000 mls @ 30 mls/hr 01/07/24 06:30 01/07/24 06:10 IV 125 mls/hr INFUSION WENDY Administration IV Miscellaneous Supplies 1 each 01/07/24 06:15 Iv Access IV DIRECTED WENDY Sodium Chloride 0 ml 01/07/24 06:15 Normal Saline Flush 10 Ml Syr IVP PRN PRN Sodium Chloride 0 ml 01/07/24 06:15 Normal Saline 10 Ml Vial IJ DIRECTED PRN PFSH Active Problems Active Problems: Problem Status Onset Code Preop examination Z01.818 Request for sterilization Z30.2 Declines vaginal after trial O34.219 Chronic hypertension affecting O10.919 GDM (gestational diabetes mellitus) O24.419 Anxiety and depression F41.9, F32.A Elderly multigravida O09.529 Obesity (BMI 35.0-39.9 without comorbidity) E66.9 History of delivery Z98.891 Z34.90 Tobacco Smoking/Tobacco Use Status: Never Alcohol Alcohol Intake: never Substance Use Substance use: Never Substance use type: does not use Prental History History 4 Para 1 Hx # Term Pregnancies 1 Multiple births 0 Hx # Pregnancies 0 Ectopic pregnancies 0 AB induced 0 Hx Number of Living Children 1 AB spontaneous 2 Past Pregnancies Del. Date GA/Weeks # Preg Succ Route Wgt Sex Labor Lgth Anesth esia Location Prov [facility] 12/22/07 42 No Yes 3543.69 g Female 10 hrs P [facility] in [place] Delivery Date: 12/22/07 Last Updated by: Flower Pena IOL for postdates, no epidural, C/S @ 4 cm, distress. [place] Vital Signs and Lab Results Vital Signs Most Recent Vital Signs in EMR: Most Recent Vital Signs Temp Pulse Resp BP Pulse Ox 36.7 C 96 H 18 113/74 98 01/07/24 07:13 01/07/24 07:13 01/07/24 07:13 01/07/24 07:13 01/07/24 07:13 Lab Results Blood Type / Crossmatch: Patient ABO/Rh A Positive 01/06/24 Antibody Screen NEGATIVE 01/06/24 Complete Blood Count: White Blood Count 13.31 10^3/uL (4.4-10.8) H 01/06/24 10:05 Red Blood Count 4.87 10^6/uL (3.93-5.22) 01/06/24 10:05 Hemoglobin 11.9 g/dL (11.2-15.7) 01/06/24 10:05 Hematocrit 37.8 % (36.0-46.0) 01/06/24 10:05 Platelet Count 202 10^3/uL (130-400) 01/06/24 10:05 Complete Metabolic Panel: Sodium 138 mmol/L (136-145) 01/06/24 10:05 Potassium 4.1 mmol/L (3.5-5.1) 01/06/24 10:05 Chloride 104 mmol/L (98-107) 01/06/24 10:05 Carbon Dioxide 23.0 mmol/L (21.0-32.0) 01/06/24 10:05 BUN 8 mg/dL (7-18) 01/06/24 10:05 Creatinine 0.6 mg/dL (0.55-1.02) 01/06/24 10:05 Est GFR (CKD-EPI 2020) 118.49 (mL/min/1.73m2) 01/06/24 10:05 Calcium 9.1 mg/dL (8.5-10.1) 01/06/24 10:05 Albumin 2.5 g/dL (3.4-5.0) L 01/06/24 10:05 Glucose 93 mg/dL (74-106) 01/06/24 10:05 Liver Function Panel: Alanine Aminotransferase (ALT/SGPT) 23 U/L (14-59) 01/06/24 10: 05 Aspartate Amino Transf (AST/SGOT) 18 U/L (15-37) 01/06/24 10:05 Coagulation Panel: No Data to Display Cardiac Panel: No Data to Display Arterial Blood Gas: No Data to Display Venous Blood Gas: No Data to Display Pancreas Panel: No Data to Display Thyroid Panel: No Data to Display Infectious Disease: No Data to Display Blood Cultures: No Data to Display Toxicology Panel: No Data to Display Panel: No Data to Display Anesthesia Assessment and Plan Anesthesia History Personal History: No History of Anesthesia Complications Family History: No Family History of Anesthesia Complications Exercise Tolerance Exercise Tolerance: Metabolic Equivalents>4 Pertinent Negatives Pertinent Negatives: No Major Cardiovascular Symptoms or Complaints and No Major Pulmonary Symptoms or Complaints Cardiac & Pulmonary Exam Cardiac Exam: Normal S1/S2 Heart Sounds Pulmonary Exam: Clear Bilateral Breath Sounds Implantable Cardiac Device Does patient have a Pacemaker or an ICD?: No Airway Exam Known Difficult Airway: No Mallampati Class: 2 Mouth Opening: Normal (> 3cm) Thyromental Distance: Greater than 3 cm Neck Range of Motion: Full ROM Neck Circumference: Normal Teeth Condition: Normal Dentition ASA Classification ASA Score: ASA 3 Emergency Case?: No NPO Status NPO Status: NPO Clears >2 hours, Solids >8 hours Status Status: Confirmed Anesthesia Plan Resuscitation Status: Full Code Anesthesia Technique: Spinal Anesthesia Airway Planned: Natural Airway Pain Management: Intrathecal Analgesia Monitors Used: Standard Monitors Preoperative Comments:: BGL 81, completed in PACU prior to surgery
[2024-01-07] MEDS: Sodium Citrate 30 ML CUP (07:40)
[2024-01-07] MEDS: ceFAZolin 2 GM/50 ML BAG IVPB (08:00)
[2024-01-07] MEDS: Bupivacaine 0.25% Pres-Free 30 ML VIAL (08:15)
--- NOTE | 2024-01-07 08:36 | FALL_PTH ---
PATIENT: Chante Manrique LOC: OBS U#:[id number] AGE/SX: 38/F ROOM: OBS.304 RE01/07/[address]: Marva Alanis : 1985 BED: A DIS: 01/09/2024 SPEC #: [id number] RECD: 01/07/24 12:49 STATUS: LONG REQ #: [id number] ONDINA: 01/07/24 08:[address]: Marva Alanis DEPT: Surgical Specimen RECD BY: Venecia Asehr ENTERED: 01/07/24 12:50 SP TYPE: Fall OTHR DR: Unknown,Unknown Tissues: 1 - FALLOPIAN TUBE (STERILIZATION) 2 - FALLOPIAN TUBE (STERILIZATION) Procedures: GROSS AND MICRO LEVEL 2 Comments: [id number]
--- NOTE | 2024-01-07 09:06 | W.PM.OBCSECT ---
Date of service: 01/07/24 Time of Service: 09:06 Operative Note Operative Note Delivery Method: Scheduled and Repeat Previous LT Incision: Yes DATE OF PROCEDURE: 01/07/24 PRE-OP DIAGNOSES: IUP at 39w1d EGA, chronic hypertension, GDM, declines [place], POST-OP DIAGNOSES: same Undesired fertility. PROCEDURE: scheduled repeat LTCS, bilateral salpingectomy SURGEON: Marva Alanis Assisting Surgeon: Chelle Milan Anesthesia: spinal Estimated blood loss (mL): 550 Pathology: other (bilateral fallopian tubes) Complications: None Patient was transported to: PACU Patient's condition: stable Indications: 38yo G2 now P2 female who declined [place] and requested rLTCS with bilateral salpingectomy. was complicated by chronic hypertension and insulin requiring gestational diabetes. Both BP and blood glucose readings under satisfactory control during this . Findings: Viable female in vertex presentation. Wt: 7lb15.6oz. Apgars 8/9. Clear amniotic fluid. Nl uterus, nl placenta and adnexa. Procedure Description: Patient was taken to the operating room she is placed in the sitting position and spinal anesthesia was administered without difficulty. She was then placed in the dorsal supine position with a leftward tilt. SCDs and a Martinez catheter to gravity drainage were in place. A vaginal prep with Betadine was performed and the patient's abdomen was prepped and draped in the usual sterile fashion.Surgical timeout was performed. Preop antibiotics were administered. After a adequate level of anesthesia was achieved a Pfannenstiel skin incision was made using a scalpel at the site of her previous Pfannenstiel scar. The underlying subcutaneous tissue dissected using Bovie electrocautery and blunt technique to the level of the rectus fascia. The rectus fascia was then nicked in the midline and the fascial incision extended laterally using Bovie electrocautery. 2 Akin clamps were applied to the superior rectus fascia and the rectus fascia was dissected off of the underlying rectus muscles using Bovie electrocautery and blunt technique. A similar technique was carried out on the inferior rectus fascia. Rectus muscles were then in the midline and the peritoneum entered bluntly. The peritoneal incision was extended laterally using blunt technique. The vesicle-uterine peritoneum over lower uterine segment was incised with curved Sahni scissors and the bladder flap created bluntly. Scalpel was used to incise the lower uterine segment in a transverse fashion. The uterine incision was extended bluntly and the amniotic sac was ruptured with clear amniotic fluid noted. A single gloved hand was placed into the uterine cavity and the head was successfully delivered through the uterine incision followed by the trunk and extremities with the assistance of fundal pressure. The cord was doubly clamped and cut and the infant handed off to the waiting pediatric team. A segment of umbilical cord was obtained and the placenta was extracted with a combination of fundal massage and gentle cord traction. The uterus was exteriorized cleared of all clots and debris and the uterine incision approximated with a running lock suture of 0 Vicryl followed by a second imbricating suture of 0 Vicryl. Uterine incision was noted be hemostatic. The left fallopian tube was grasped at its fimbriated end and a LigaSure electrocautery device was used to clamp cauterize and transect the fimbria from the left mesosalpinx to the level of the left uterine cornua. The left fallopian tube was then transected from the uterine cornua and delivered through the 5 mm umbilical port and passed off of the operative field. A similar technique was carried out on the right fallopian tube without difficulty. The right fallopian tube was then delivered through the umbilical port. Both fallopian tube pedicles were inspected and noted to be hemostatic. The uterus was returned to the abdomen and the paracolic gutters cleared of all clots and debris. The uterine incision, the bladder flap and the abdominal wall were inspected and noted to be hemostatic. The rectus fascia was reapproximated with a running suture of 0 Vicryl. space within the subcutaneous tissue closed with an interrupted suture of 2-0 Vicryl. The skin incision was reapproximated with a subcuticular closure of 4-0 Vicryl. Steri strips and a Mepilex dressing was applied. The uterus was massaged for any remaining clots and debris. The patient was transported to recovery area in stable condition. All sponge, lap, and needle counts correct x2. Infant Gender: Female weight: 7 lb 15.6 oz
[2024-01-07] MEDS: Naloxone 0.4 MG/ML VIAL IVP (11:13)
--- NOTE | 2024-01-07 11:59 | W.ANESPOSTOP ---
Postoperative Evaluation Date, Time and Location Date Performed: 01/07/24 Time Performed: 11:59 Patient Location: Obstetrics Vital Signs Most Recent Imported Vital Signs: Most Recent Vital Signs Temp Pulse Resp BP Pulse Ox 36.3 C L 94 H 18 123/68 97 01/07/24 11:14 01/07/24 11:55 01/07/24 11:14 01/07/24 11:39 01/07/24 11:55 Assessment Mental Status: Awake (Alert & Oriented to Patient Baseline) Airway and Respiratory Function: Patent airway with normal (patient baseline) respiratory exam Cardiovascular Function: Hemodynamically Stable Hydration Status: Adequately Hydrated Nausea & Vomiting: No Nausea or Vomiting Pain: Pt. Denies Any Pain Peripheral Nerve Block: Patient did not receive a nerve block Postoperative Comments:: Some mild itching, good effect from narcan due to intrathecal narcotics.
[2024-01-07] MEDS: oxyCODONE 5 mg/Acetaminophen 325 mg TAB PO (13:01)
[2024-01-07] MEDS: Normal Saline Flush 10 ML SYR IVP (15:07)
[2024-01-07] MEDS: Ketorolac 30 MG/ML VIAL IVP (15:07)
[2024-01-07] MEDS: Acetaminophen 325 MG TAB 650 MG PO (22:12)
[2024-01-07] MEDS: Ibuprofen 600 MG TAB PO (22:12)
[2024-01-07] MEDS: Labetalol 100 MG TAB PO (22:12)
[2024-01-08 03:54] VITALS: BP 113/78; PULSE 89; TEMP 36.6
[2024-01-08] MEDS: Acetaminophen 325 MG TAB 650 MG PO ×3 (06:17→19:25)
[2024-01-08] MEDS: Ibuprofen 600 MG TAB PO ×3 (06:17→19:25)
[2024-01-08 06:30] LABS: Abs Immature Grans 0.13 10^3/uL (0.0-0.06); Absolute Basophil Count 0.04 10^3/uL (0.0-0.2); Absolute Lymphocyte Count 2.36 10^3/uL (1.2-3.4); Absolute Monocyte Count 0.78 10^3/uL (0.1-0.8); Basophils % 0.3; Eosinophils % 0.4; HCT 33.1 % (36.0-46.0); HGB 10.5 g/dL (11.2-15.7); Immature Grans % 0.9; Lymphocytes % 17.2; MCH 25.2 pg (27.0-33.0); MCHC 31.7 % (32.0-36.0); MCV 79 fL (80-95); MPV 10.8 fL (8.0-11.0); Monocytes % 5.7; Neutrophils % 75.5; Platelet Count 194 10^3/uL (130-400); RBC 4.17 10^6/uL (3.93-5.22); RDW 16.8 % (11.7-14.6); RDW-SD 46.7 fL; WBC 13.72 10^3/uL (4.4-10.8)
[2024-01-08 06:38] LABS: Absolute Eosinophil Count 0.05 10^3/uL (0.0-0.7); Absolute Neutrophil Count 10.36 10^3/uL (1.2-6.7)
[2024-01-08 06:41] LABS: Anion Gap 7.8 mmol/L (3-11); BUN 19 mg/dL (7-18); CO2 27.2 mmol/L (21.0-32.0); CREATININE 0.6 mg/dL (0.55-1.02); Calcium 8.7 mg/dL (8.5-10.1); Chloride 106 mmol/L (98-107); Estimated GFR 118.49 (mL/min/1.73m2); Glucose 69 mg/dL (74-106); Sodium 141 mmol/L (136-145)
--- NOTE | 2024-01-08 07:48 | W.PM.OBPNV1 ---
Date of service: 01/08/24 Time of Service: 07:49 Assessment and Plan Assessment and plan (1) Status post repeat low transverse section: Status: Acute Assessment and plan: Postoperative day #1 status post repeat low-transverse section with bilateral salpingectomy. Doing well. Will increase activity, regular diet, anticipate discharge in 24 hours. Hemoglobin stable at 10.5. (2) S/P tubal ligation: Status: Acute Subjective Subjective Interval history: Patient seen and examined this morning. Doing well. Some hypoglycemic episodes. Patient is supplementing and plan on breast-feeding as well. Pain is well-controlled. Hoping for an early discharge, potentially tomorrow. All questions answered Patient's Mood: Appropriate baby status: Doing well, Supplemental feeding going well and Strong Bonding Observed Exam Physical Exam Vital signs: Temp Pulse Resp BP Pulse Ox 97.9 F 89 17 113/78 98 01/08/24 03:54 01/08/24 03:54 01/07/24 22:14 01/08/24 03:54 01/07/24 22:14 Vital Signs Reviewed: Yes Constitutional Constitutional: no acute distress Comments: Pain is well-controlled HEENT Exam HEENT Exam: Normal Respiratory Exam Respiratory Exam: Normal Cardiovascular Exam Cardiovascular Exam: Normal Abdominal Exam Comments: Soft, nontender, nondistended. Mepilex in place Fundal Exam Fundus: Below Umbilicus and Firm Extremities Exam Extremity Exam: Normal Results Hemoglobin/Hematocrit: Hgb 10.5 g/dL (11.2-15.7) L 01/08/24 06:00 Hct 33.1 % (36.0-46.0) L 01/08/24 06:00 Abnormal Lab Findings: Abnormal Labs 01/08/24 06:00 WBC 13.72 H Hgb 10.5 L Hct 33.1 L MCV 79 L MCH 25.2 L MCHC 31.7 L RDW 16.8 H Absolute Neutrophils 10.36 H BUN 19 H Glucose 69 L
[2024-01-08 08:00] VITALS: BP 114/69; PULSE 83; RESP 16; TEMP 36.4; O2SAT 98
[2024-01-08] MEDS: Citalopram 20 MG TAB 40 MG PO (08:12)
[2024-01-08] MEDS: Docusate Sodium 100 MG CAP PO ×2 (08:12→19:26)
[2024-01-08] MEDS: Labetalol 100 MG TAB PO ×2 (08:12→19:25)
[2024-01-08 11:50] VITALS: BP 116/74; PULSE 93; RESP 16; TEMP 36.6; O2SAT 96
[2024-01-08 16:00] VITALS: BP 126/85; PULSE 92; RESP 16; TEMP 36.7; O2SAT 96
[2024-01-08 19:42] VITALS: BP 131/89; PULSE 93; RESP 16; TEMP 36.8; O2SAT 97
[2024-01-09] MEDS: Ibuprofen 600 MG TAB PO ×2 (01:58→08:35)
[2024-01-09] MEDS: Acetaminophen 325 MG TAB 650 MG PO ×2 (01:58→08:34)
[2024-01-09] MEDS: Famotidine 20 MG TAB 40 MG PO (02:55)
--- NOTE | 2024-01-09 07:28 | W.PM.OBPNV1 ---
Date of service: 01/09/24 Time of Service: 07:28 Assessment and Plan Assessment and plan (1) Status post repeat low transverse section: Status: Acute Assessment and plan: Postoperative day #2 status post repeat low-transverse section with bilateral salpingectomy. Doing well in the period. Discharge home today. Follow-up in the office in 1 and 6 weeks. All questions answered. (2) S/P tubal ligation: Status: Acute Subjective Subjective Interval history: Patient seen and examined. Doing well. Pain is well-controlled. Vital signs are stable. Has opted to bottlefeed. Anticipates discharge home today [place] baby status: Bottle feeding well and Rooming in Exam Physical Exam Vital signs: Temp Pulse Resp BP Pulse Ox 98.2 F 93 H 16 131/89 97 01/08/24 19:42 01/08/24 19:42 01/08/24 19:42 01/08/24 19:42 01/08/24 19:42 Vital Signs Reviewed: Yes Constitutional Constitutional: no acute distress HEENT Exam HEENT Exam: Normal Neck Exam Neck Exam: Normal Respiratory Exam Respiratory Exam: Normal Cardiovascular Exam Cardiovascular Exam: Normal Abdominal Exam Comments: Soft, nontender, Mepilex dressing in place over incision Fundal Exam Fundus: Below Umbilicus and Firm Extremities Exam Extremity Exam: Normal and Edema (1+ bilateral); negative Calf Tenderness Skin Exam Skin Exam: Normal Neurological Exam Neurological Exam: Normal Psychiatric Exam Psychiatric Exam: Normal Results Hemoglobin/Hematocrit: Hgb 10.5 g/dL (11.2-15.7) L 01/08/24 06:00 Hct 33.1 % (36.0-46.0) L 01/08/24 06:00 Abnormal Lab Findings: Abnormal Labs 01/08/24 06:00 WBC 13.72 H Hgb 10.5 L Hct 33.1 L MCV 79 L MCH 25.2 L MCHC 31.7 L RDW 16.8 H Absolute Neutrophils 10.36 H BUN 19 H Glucose 69 L
--- NOTE | 2024-01-09 07:29 | W.PM.OBDISCH ---
Date of service: 01/09/24 Time of Service: 07:30 DS: Diagnosis Discharge Diagnosis (1) Status post repeat low transverse section: Status: Acute (2) S/P tubal ligation: Status: Acute Discharge Plan Disposition Patient Disposition: Home Condition: Improving Discharge Details Reason For Visit: Repeat Delivery Admit Date/Time: 01/07/24 09:06 Admit Provider: Marva Alanis Attending Provider: Marva Alanis Primary Care Provider: Unknown,Unknown Hospital Course Hospital Course: Patient had a previous section and declines trial of labor. She was scheduled for a repeat low-transverse section with bilateral salpingectomy. She underwent this procedure on 01/17 for delivery of a viable female infant. Her and postoperative course were uncomplicated and she and her newbornHazley were discharged home in stable condition. She has opted to bottlefeed. She will be seen back in the office in 1 and 6 weeks for postoperative and checkup. Home Meds and New Rx's Prescriptions: New ibuprofen 800 mg tablet 800 mg PO Q8H PRNQty: 60 1RF oxycodone-acetaminophen [Percocet] 5-325 mg tablet 1 tab PO Q8H PRNQty: 7 0RF docusate sodium [Colace] 100 mg capsule 100 mg PO BID Qty: 30 1RF Continued Flintstones Complete Tablet,Chewable 2 tab PO DAILY citalopram [Celexa] 20 mg tablet 40 mg PO DAILY labetalol 100 mg tablet 200 mg PO BID Qty: 60 1RF Discontinued aspirin 81 mg tablet,delayed release (DR/EC) 81 mg PO DAILY Qty: 60 4RF Rx Instructions: one tab daily and two tabs every other day alternating Humulin N NPH Insulin KwikPen 100 unit/mL (3 mL) insulin pen 8 unit subcut BID Qty: 15 2RF Rx Instructions: 8 units in am and pm. No Action (DME) blood-glucose meter [FreeStyle [place] Lite] Kit See Rx Instructions .Route Qty: 1 0RF Rx Instructions: 4 times daily (DME) FreeStyle Lite Strips Strip See Rx Instructions .Route Qty: 100 0RF Rx Instructions: 4 times daily (DME) lancets [Advocate Lancet] 26 gauge misc See Rx Instructions .Route Qty: 100 0RF Rx Instructions: 4 times daily (DME) pen needle, diabetic [BD Ultra-Fine Orig Pen Needle] 29 gauge x 1/2 needle See Rx Instructions .ROUTE .MEDSUPPLY Qty: 100 0RF Rx Instructions: As directed Discharge Instructions Additional Instructions: [facility] Forms: BC Discharge Instruc Activity:: Pelvic rest, no heavy Equipment/Supplies:: No Equipment Needed Diet:: As Tolerated Discharge Orders Discharge Orders: Discharge Order (Routine); Ordered 01/09/24 Ordered By: Chelle Milan OB:DS Summary Contraception Discussed Contraception Discussed: Yes Contraceptive Plan: Tubal Ligation, Gender-Baby A: Female weight: 7 lb 15.6 oz Status at Discharge Functional status at discharge: independent ambulation Overall status at discharge: patient is progressing back to baseline Mental Status: mental status grossly normal Speech and Movement: speech and movement normal Mood: congruent mood Affect: normal affect Quality:SDOH Health Related Social Needs: No Data to Display Exam Physical Exam Vital signs: Temp Pulse Resp BP Pulse Ox 98.2 F 93 H 16 131/89 97 01/08/24 19:42 01/08/24 19:42 01/08/24 19:42 01/08/24 19:42 01/08/24 19:42 Narrative: Please see physical exam from progress note dated 01/09/2024 PFSH All Active Problems S/P tubal ligation (Acute) Bilateral salpingectomy at time of section 01/07/2024 Status post repeat low transverse section (Acute) 01/07/2024?female [place] With bilateral salpingectomy Preop examination (Acute) Request for sterilization (Acute) Declines vaginal after trial (Acute) Chronic hypertension affecting (Acute) GDM (gestational diabetes mellitus) (Acute) Anxiety and depression (Chronic) Elderly multigravida (Acute) Obesity (BMI 35.0-39.9 without comorbidity) (Acute) History of delivery (Chronic) (Acute) Social History Smoking/Tobacco Use Status: Never Smoking risk assessment performed?: Yes Alcohol Intake: never Drug use: Never Substance use type: does not use Household members: significant other, family and other Details: 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 BF Zacarias. Housing: house Number of Children: 1 Do you feel safe at home: Yes Do you feel safe in your relationship?: Yes History History 4 Para 1 Hx # Term Pregnancies 1 Multiple births 0 Hx # Pregnancies 0 Ectopic pregnancies 0 AB induced 0 Hx Number of Living Children 1 AB spontaneous 2 Past Pregnancies Del. Date GA/Weeks # Preg Succ Route Wgt Sex Labor Lgth Anesthesia Location Prov Complic 12/22/07 42 No Yes 7 lb 13 oz Female [address] [facility] [place] Delivery Date: 12/22/07 Last Updated by: Flower Pena IOL for postdates, no epidural, C/S @ 4 cm, distress. Ny DS: Data Vitals/I&O Vitals and I&O: Vital Signs Temperature 98.2 F 01/08/24 19:42 Temperature Source Oral 01/08/24 19:42 Pulse 93 H 01/08/24 19:42 Pulse Rhythm Regular 01/08/24 20:00 Respiratory Rate 16 01/08/24 19:42 Respiratory Depth Normal 01/07/24 22:00 Blood Pressure 131/89 01/08/24 19:42 Blood Pressure Mean 103 01/08/24 19:42 Pulse Oximetry 97 01/08/24 19:42 Oxygen Delivery Method Room Air 01/07/24 09:43 Pain Level 7 01/08/24 16:00 Comment Miscapture by Machine 01/07/24 07:28 Intake & Output 01/08/24 01/08/24 01/09/24 11:59 23:59 11:59 Output Total 550 / 900 350 / 900 Balance -550 / -900 -350 / -900 Output: Urine 550 / 900 350 / 900 Other: Urine Color Yellow Pale Urine Appearance Clear Cloudy Urine Odor None Voiding Methods Toilet
[2024-01-09 07:45] VITALS: BP 126/86; PULSE 82; RESP 16; TEMP 36.6; O2SAT 97
[2024-01-09] MEDS: Labetalol 100 MG TAB PO (08:34)
[2024-01-09] MEDS: Docusate Sodium 100 MG CAP PO (08:34)
== END 2024-01-09 11:10 | disposition home or self-care (01) | DRG 784 ==
PROVIDERS: Admitting Provider Obstetrics & Gynecology Gynecology; Visit Provider Obstetrics & Gynecology Gynecology
PROC: 10D00Z1 Extraction of Products of Conception, Low, Open Approach (ICD-10-PCS; CPT 59514; principal; 2024-01-07 07:30)
PROC: 10D00Z1 Extraction of Products of Conception, Low, Open Approach (ICD-10-PCS; CPT 58605; 2024-01-07 07:30)
DX: O34.211 Maternal care for low transverse scar from previous cesarean delivery (principal); O10.92 Unspecified pre-existing hypertension complicating childbirth; O24.424 Gestational diabetes mellitus in childbirth, insulin controlled; Z37.0 Single live birth; Z3A.39 39 weeks gestation of pregnancy; Z30.2 Encounter for sterilization; O99.344 Other mental disorders complicating childbirth; F41.8 Other specified anxiety disorders
CPT/HCPCS: 59514; 58700; 36415; 80048; 85025; 88302; J0456; J0665; J0690; J1100; J1885; J2274; J2310; J2371; J2405; J3010

== ENCOUNTER 2024-03-12 02:04 | Outpatient (CLI) | payer MEDICAID, SELFPAY ==
[2024-03-12 12:12] LABS: GTT Comment See Comments
== END 2024-03-12 02:05 | disposition home or self-care (01) ==
LOC: LBO 02:05
PROVIDERS: Visit Provider Obstetrics & Gynecology
DX: Z86.32 Personal history of gestational diabetes (principal)
CPT/HCPCS: 36415; 82951